=== PATIENT | male | born 1935 | race Caucasian/White ===

== ENCOUNTER → 2018-07-05 | Outpatient (CLI) | payer OTHER | END | disposition home or self-care (01) | LOC: SHCH 10:00 | PROVIDERS: ATTEND Internal Medicine Cardiovascular Disease | DX: I51.7 Cardiomegaly (principal); I35.1 Nonrheumatic aortic (valve) insufficiency; I65.21 Occlusion and stenosis of right carotid artery; I48.0 Paroxysmal atrial fibrillation; Z95.0 Presence of cardiac pacemaker | CPT/HCPCS: 93306 ==

== ENCOUNTER → 2018-07-08 | Outpatient (CLI) | payer OTHER | END | disposition home or self-care (01) | LOC: SHCH 10:20 | PROVIDERS: ATTEND Internal Medicine Cardiovascular Disease | DX: I65.23 Occlusion and stenosis of bilateral carotid arteries (principal) | CPT/HCPCS: 93880 ==

== ENCOUNTER 2018-07-29 10:11 | Day surgery (SDC) | payer OTHER ==
[2018-07-27 10:19] VITALS: BP 158/83
[2018-07-27 10:34] LABS: APPEARANCE,URINE Clear (CLEAR); BASOPHILS % (AUTO) 1.8 % (0.0-5.0); BILIRUBIN,URINE Negative (NEGATIVE); COLOR,URINE Yellow (YELLOW); EOSINOPHILS % (AUTO) 10.3 % (0.0-8.0); GLUCOSE, URINE (UA) Negative (NEGATIVE); HEMATOCRIT 38.3 % (42-54); KETONES,URINE Negative (NEGATIVE); LEUKOCYTE ESTERASE ,URINE Negative (NEGATIVE); LYMPHOCYTES % (AUTO) 18.6 % (21.0-51.0); MEAN CORPUSCULAR HEMOGLOBIN 31.2 pg (27.0-33.0); MEAN CORPUSCULAR HGB CONC 34.2 g/dL (32.0-36.0); MEAN CORPUSCULAR VOLUME 91.3 fL (79-99); MONOCYTES % (AUTO) 8.2 % (3.0-13.0); NEUTROPHILS % (AUTO) 61.1 % (40.0-77.0); NITRATE,URINE Negative (NEGATIVE); OCCULT BLOOD,URINE Negative (NEGATIVE); PLATELET COUNT (AUTO) 219 K/uL (130-400); PROTEIN,URINE Negative (NEGATIVE); RED BLOOD CELL COUNT(AUTO) 4.19 MIL/uL (4.50-6.20); RED CELL DISTRIBUTION WIDTH 14.5 % (11.0-15.5); WHITE BLOOD COUNT (AUTO) 6.2 K/uL (4.8-10.8)
[2018-07-27 10:47] LABS: INR 1.04 (0.85-1.15); PARTIAL THROMBOPLASTIN TIME 30.4 SEC (26.3-35.5); PROTHROMBIN TIME 10.9 SEC (9.6-11.6)
[2018-07-27 11:14] LABS: CREATININE 1.2 mg/dL (0.5-1.5); POTASSIUM 4.2 mmol/L (3.5-5.1)
[2018-07-29] VITALS (10 sets, daily range): BP systolic 108–179; BP diastolic 53–88
[~2018-07-29] VITALS: Ht 182.9 cm; Wt 78.2 kg
[~2018-07-29 10:11] MED LIST: APIX5TAB PO; ATOR40TA69 PO; CLOP75TA32 PO; LEVO137T2 PO; METF-444 PO; OMEP20CA10 PO; SILD100T PO; SODIUM CHLORIDE 0.9% 500ML 500 ML IV SCH; [UNRECOGNIZED DRUG - CODE] IM
[2018-07-29] MEDS ORDERED: SODIUM CHLORIDE 0.9% 1000ML 1,000 ML IV ONE (11:10)
--- NOTE | 2018-07-29 13:15 | NUR ---
PROCEDURE pt taken to [facility] via bed, no distress noted. denies any pain or discomforts. spouse at bedside.
[2018-07-29] MEDS ORDERED: NITROGLYCERIN 5 MG/ML 10 ML VIAL IV ONE (13:24)
[2018-07-29] MEDS ORDERED: LIDOCAINE HCL 2% 20ML ONE (13:24)
[2018-07-29] MEDS ORDERED: IODIXANOL 320 MG/ML 100 ML VIAL ONE (13:24)
[2018-07-29] MEDS ORDERED: HYDRALAZINE HCL 20 MG/ML VIAL ONE ×2 (13:54→14:25)
[2018-07-29] MEDS ORDERED: SODIUM CHLORIDE 0.9% 1000ML 1,000 ML IV SCH (14:31)
[2018-07-29] MEDS ORDERED: GLUCAGON 1MG KIT 1 MG ML IM PRN (14:45)
[2018-07-29] MEDS ORDERED: DEXTROSE 50%-WATER 50 ML DISP.SYRIN IV PRN (14:45)
[2018-07-29] MEDS ORDERED: ACETAMINOPHEN 325 MG TAB PO ONE (16:30)
== END 2018-07-29 19:20 | disposition home or self-care (01) ==
LOC: DAH 10:11
PROVIDERS: ATTEND Internal Medicine Cardiovascular Disease
DX: I65.23 Occlusion and stenosis of bilateral carotid arteries (principal); I65.02 Occlusion and stenosis of left vertebral artery; R00.1 Bradycardia, unspecified; I48.0 Paroxysmal atrial fibrillation; R55 Syncope and collapse; E78.5 Hyperlipidemia, unspecified; E11.59 Type 2 diabetes mellitus with other circulatory complications; E03.9 Hypothyroidism, unspecified; I12.9 Hypertensive chronic kidney disease with stage 1 through stage 4 chronic kidney disease, or unspecified chronic kidney disease; E11.22 Type 2 diabetes mellitus with diabetic chronic kidney disease; N18.3 Chronic kidney disease, stage 3 (moderate); D68.69 Other thrombophilia
CPT/HCPCS: 36223; 36226; 36415; 71045; 80048; 81003; 82948 ×2; 85025; 85610; 85730; 93005; A4606; C1760; C1769 ×2; C1894; J0360 ×2; J1644; J3490 ×2; J7030; Q9967

== ENCOUNTER 2018-08-22 09:45 | Inpatient (IN) | payer MEDICARE ==
[~2018-08-22] VITALS: Ht 182.9 cm; Wt 78.0 kg
[~2018-08-22 09:45] MED LIST changes: -SODIUM CHLORIDE 0.9% 500ML 500 ML IV SCH
[2018-08-22 10:11] LABS: BASOPHILS % (AUTO) 1.2 % (0.0-5.0); EOSINOPHILS % (AUTO) 10.2 % (0.0-8.0); HEMATOCRIT 39.6 % (42-54); LYMPHOCYTES % (AUTO) 16.1 % (21.0-51.0); MEAN CORPUSCULAR HEMOGLOBIN 31.2 pg (27.0-33.0); MEAN CORPUSCULAR HGB CONC 33.6 g/dL (32.0-36.0); MEAN CORPUSCULAR VOLUME 92.7 fL (79-99); MONOCYTES % (AUTO) 9.8 % (3.0-13.0); NEUTROPHILS % (AUTO) 62.7 % (40.0-77.0); PLATELET COUNT (AUTO) 256 K/uL (130-400); RED BLOOD CELL COUNT(AUTO) 4.28 MIL/uL (4.50-6.20); RED CELL DISTRIBUTION WIDTH 14.6 % (11.0-15.5); WHITE BLOOD COUNT (AUTO) 8.3 K/uL (4.8-10.8)
[2018-08-22 10:14] VITALS: BP 151/79
[2018-08-22 10:20] LABS: CREATININE 1.2 mg/dL (0.5-1.5); POTASSIUM 4.6 mmol/L (3.5-5.1)
[2018-08-22] MEDS ORDERED: ASPI-1181 PO (10:49)
[2018-08-22] MEDS ORDERED: DILT-36 PO (10:49)
[2018-08-31] VITALS (38 sets, daily range): BP systolic 84–142; BP diastolic 49–77
[2018-08-31] MEDS: CEFAZOLIN SODIUM 1 GM VIAL IVP SCH ×2 (06:00→08:00)
[2018-08-31] MEDS ORDERED: SUCCINYLCHOLINE 200MG/10ML SYR ONE (06:46)
[2018-08-31] MEDS ORDERED: LIDOCAINE PF 2% 5ML ABBOJECT ONE (06:46)
[2018-08-31] MEDS ORDERED: DEXAMETHASONE SOD PHOSPHATE 10MG/ML 1ML VIAL ONE ×2 (06:46→06:53)
[2018-08-31] MEDS ORDERED: GLYCOPYRROLATE 1 MG/5 ML SYRINGE ONE (06:47)
[2018-08-31] MEDS ORDERED: ONDANSETRON HCL 4 MG/2 ML VIAL ONE (06:47)
[2018-08-31] MEDS ORDERED: PROPOFOL 10 MG/ML 20ML VIAL IV ONE (06:47)
[2018-08-31] MEDS ORDERED: MIDAZOLAM HCL 1 MG/ML 2ML VIAL ONE (06:47)
[2018-08-31] MEDS ORDERED: NEOSTIGMINE 5MG/5ML SYR IV ONE (06:47)
[2018-08-31] MEDS ORDERED: ROCURONIUM 10MG/1ML SYR 10 MG/ML ML ONE (06:47)
[2018-08-31] MEDS ORDERED: FENTANYL CITRATE PF 50 MCG/1 ML 2ML VIAL ONE (06:48)
[2018-08-31] MEDS ORDERED: LIDOCAINE HCL 1% 20 ML VIAL ONE (06:58)
[2018-08-31] MEDS ORDERED: BUPIVACAINE/EPI/PF 0.25% 30ML VIAL IJ ONE (06:58)
[2018-08-31] MEDS ORDERED: SODIUM CHLORIDE 0.9% 1000ML 1,000 ML IV ONE (06:58)
[2018-08-31] MEDS ORDERED: THROMBIN-JMI 5000 UNIT/VIAL TP ONE (06:59)
[2018-08-31] MEDS ORDERED: BACITRACIN 50,000 UNIT VIAL ONE (06:59)
[2018-08-31] MEDS ORDERED: EPHEDRINE SULFATE 50 MG/ML AMPULE ONE (07:24)
[2018-08-31] MEDS ORDERED: MANNITOL 20% 500ML BAG 500 ML IV ONE (07:51)
[2018-08-31] MEDS ORDERED: LIDOCAINE HCL 4% LTA SOL 4 ML VIAL ONE (09:26)
[2018-08-31] MEDS ORDERED: TESTOSTERONE CYPIONATE 200 MG IM SCH (10:15)
[2018-08-31] MEDS ORDERED: CEFAZOLIN SODIUM 1 GM VIAL IVP SCH (10:15)
[2018-08-31] MEDS ORDERED: MORPHINE SULFATE 2 MG/ML 1ML SYG IVP PRN (10:15)
[2018-08-31] MEDS ORDERED: NON-FORMULARY MEDICATION 1 EACH (Sildenafil Citrate (Viagra) 100 MG) PO SCH (10:15)
[2018-08-31] MEDS ORDERED: HYDROCODONE/ACETAMINOPHEN 5/325 MG TAB PO PRN (10:15)
[2018-08-31] MEDS: DEXAMETHASONE SOD PHOSPHATE 4 MG/ML 1ML VIAL IVP SCH ×3 (12:19→21:56)
[2018-08-31] MEDS: HEPARIN SODIUM 5000 UNIT/ML 5,000 UNIT in LACTATED RINGERS 1000ML 1,000 ML IV SCH ×3 (12:19→22:00)
[2018-08-31] MEDS: METFORMIN HCL 500 MG TABLET PO SCH (16:04)
--- NOTE | 2018-08-31 20:00 | NUR ---
ASSESSMENT AWAKE. RESTING IN BED. DENIES PAIN. ASSESSMENT COMPLETED SEE FLOW SHEET. ENCOURAGED TO CALL FOR WANTS OR NEEDS. Addendum: 08/31/18 at 2023 by JOHN PEREZ RN RN Amended: Links added.
[2018-08-31] MEDS ORDERED: ATORVASTATIN CALCIUM 40 MG TABLET PO SCH (21:00)
[2018-08-31] MEDS ORDERED: ASPIRIN 81 MG EC TAB PO SCH (21:00)
[2018-09-01] VITALS (8 sets, daily range): BP systolic 117–141; BP diastolic 53–60
[2018-09-01] MEDS: DEXAMETHASONE SOD PHOSPHATE 4 MG/ML 1ML VIAL IVP SCH (05:04)
[2018-09-01] MEDS: HEPARIN SODIUM 5000 UNIT/ML 5,000 UNIT in LACTATED RINGERS 1000ML 1,000 ML IV SCH (06:05)
[2018-09-01] MEDS ORDERED: LEVOTHYROXINE 25 MCG TABLET PO SCH (06:30)
[2018-09-01] MEDS ORDERED: LEVOTHYROXINE 112 MCG TABLET PO SCH (06:30)
[2018-09-01] MEDS: METFORMIN HCL 500 MG TABLET PO SCH (07:29)
[2018-09-01] MEDS ORDERED: ***HM***(Omeprazole 20 MG) PO SCH (07:30)
[2018-09-01] MEDS ORDERED: DILTIAZEM HCL 120 MG CAP.SR.24H PO SCH (09:00)
[2018-09-01] MEDS ORDERED: ASPIRIN 325 MG TABLET PO SCH (09:00)
--- NOTE | 2018-09-01 09:43 | NUR ---
Patient and (Cynthia) educated on Discharge information. Verbalized with teach back that they will hold Plavix and Eliquis until Dr Dunbar instructs them to restart. Verbalized to keep neck dressing dry, no bath tubs. Patient is able to demonstrate going from supine to standing without dizziness. Gait steady. No complaints with ambulation. Verbalized understanding of follow up for 09/09 at 0840am. No questions at this time.
--- NOTE | 2018-09-01 10:10 | NUR ---
PIV removed, tolerated well, dressing applied. Patient taken to private car via wheelchair, with and all belongings.
--- NOTE | 2018-09-01 13:42 | NUR ---
DC PLAN PATIENT DISCHARGED ALREADY GONE NO NEEDS VERBALIZED BY NURSING STAFF. Addendum: 09/01/18 at 1343 by JAN CHAKRABORTY RN CM Amended: Links added.
== END 2018-09-01 10:10 | disposition home or self-care (01) | DRG 39 ==
LOC: EDSTATUS 09:45 → DAHIP 08-31 05:42 → 2BH 08-31 11:26
PROVIDERS: ADMIT Neurological Surgery; ATTEND Neurological Surgery
PROC: 03CK0ZZ Extirpation of Matter from Right Internal Carotid Artery, Open Approach (ICD-10-PCS; principal; 2018-08-31 07:30)
DX: I65.21 Occlusion and stenosis of right carotid artery (principal); N18.3 Chronic kidney disease, stage 3 (moderate); I12.9 Hypertensive chronic kidney disease with stage 1 through stage 4 chronic kidney disease, or unspecified chronic kidney disease; E11.22 Type 2 diabetes mellitus with diabetic chronic kidney disease; I48.0 Paroxysmal atrial fibrillation; E78.5 Hyperlipidemia, unspecified; E03.9 Hypothyroidism, unspecified; Z95.0 Presence of cardiac pacemaker; Z79.01 Long term (current) use of anticoagulants; Z82.49 Family history of ischemic heart disease and other diseases of the circulatory system
CPT/HCPCS: 36415; 80048; 82948; 85025; 88304; A4218; A4344; A4606; G0378; J0330; J0690; J1100; J1644; J2001; J2250; J2405; J2704; J2710; J3010; J3490; J7030; J7040; J7120